=== PATIENT | female | born 1985 ===

== ENCOUNTER 2019-03-31 14:06 | Day surgery (SDC) | payer BC, OTHER ==
[~2019-03-31] VITALS: Ht 160 cm; Wt 112.3 kg
[~2019-03-31 14:06] MED LIST: BUPIVACAINE/PF-EPI 0.5% 1:200K ONE; IBUP-1223 PO; NAPR220T77 PO
[2019-03-31 14:31] VITALS: BP 126/91
[2019-03-31] MEDS ORDERED: LACTATED RINGERS 1,000 ML IV SCH (14:31)
[2019-03-31] MEDS ORDERED: FENTANYL PF 250 MCG/5ML ONE (14:58)
[2019-03-31] MEDS ORDERED: MIDAZOLAM 1 MG/ML, 2ML ONE (14:58)
[2019-03-31 15:16] LABS: HCG UR SG > 1.045 (1.003-1.030)
[2019-03-31] MEDS ORDERED: ONDANSETRON 2MG/ML, 2ML ONE (15:31)
[2019-03-31] MEDS ORDERED: CEFAZOLIN 1,000 MG ONE (15:31)
[2019-03-31] MEDS ORDERED: DEXAMETHASONE 4 MG/ML, 1ML ONE ×2 (16:05)
[2019-03-31] MEDS ORDERED: ALBUTEROL/IPRATROPIUM 2.5MG/0.5MG, 3 ML ONE (17:18)
[2019-03-31] MEDS ORDERED: hydrALAzine 20 MG/ML, 1ML IV PRN (17:30)
[2019-03-31] MEDS ORDERED: HALOPERIDOL 5 MG/ML IV PRN (17:30)
[2019-03-31] MEDS ORDERED: ACETAMINOPHEN 325 MG TABLET PO PRN (17:30)
[2019-03-31] MEDS ORDERED: HYDROmorphone 2 MG/ML, 1ML IVPush PRN (17:30)
[2019-03-31] MEDS ORDERED: OXYcodone 5 MG/5 ML ORAL.SOL UDC PO PRN (17:30)
[2019-03-31] MEDS ORDERED: MEPERIDINE/PF 25MG/0.5ML IVPush PRN (17:30)
[2019-03-31] MEDS ORDERED: PROMETHAZINE 25 MG/ML, 1ML IV PRN (17:30)
[2019-03-31] MEDS ORDERED: FENTANYL PF 100 MCG/2ML IV PRN (17:30)
[2019-03-31] MEDS ORDERED: ALBUTEROL SULFATE 2.5 MG/3 ML NPPB PRN (17:30)
== END 2019-03-31 18:40 | disposition home or self-care (01) ==
LOC: OR 14:06
PROVIDERS: ATTEND Podiatrist Foot & Ankle Surgery
DX: M19.071 Primary osteoarthritis, right ankle and foot (principal); M21.41 Flat foot [pes planus] (acquired), right foot; M77.31 Calcaneal spur, right foot; M72.2 Plantar fascial fibromatosis; M67.01 Short Achilles tendon (acquired), right ankle; M21.6X1 Other acquired deformities of right foot; M25.771 Osteophyte, right ankle; J45.909 Unspecified asthma, uncomplicated; E66.01 Morbid (severe) obesity due to excess calories; F17.210 Nicotine dependence, cigarettes, uncomplicated; Z68.41 Body mass index [BMI] 40.0-44.9, adult; Z79.1 Long term (current) use of non-steroidal anti-inflammatories (NSAID)
CPT/HCPCS: 27685; 28119; 28740; 64445; 64447; 73620; 76000; 81025; 94640; C1713; J0690; J1100; J2250; J2405; J3010; J7120; J7613